=== PATIENT | male | born 1970 | race Caucasian/White ===

== ENCOUNTER 2020-06-15 15:25 | Observation (INO) ==
[2020-06-15 16:02] LABS: Basophils # 0.1 10*3/uL (0.0-0.2); Basophils % 1.1 % (0.0-0.8); Eosinophils # 0.2 10*3/uL (0.0-0.87); Eosinophils % 4.8 % (0.00-10.9); Hematocrit 47.7 VOL% (42.0-52.0); Hemoglobin 16.6 GM/DL (14.0-18.0); Immature Granulocytes % 0.4 %; Immature Granulocytes Absolute 0.02 #; Lymphocytes # 1.4 10*3/uL (1.4-4.0); Lymphocytes % 30.5 % (21.2-54.2); Mean Corpuscular HGB Conc 34.8 GM/DL (32-36); Mean Corpuscular Volume 83.1 FL (87-102); Mean Platelet Volume 9.3 FL (9.6-12.0); Monocytes % 6.7 % (1.7-12.7); Neutrophils % 56.5 % (38.7-73.9); Platelet Count 218 T/CUMM (130-400); Red Blood Count 5.74 MC/CUMM (3.8-5.5); Red Cell Distribution Width 12.1 % (9.3-17.3); White Blood Count 4.6 T/CUMM (4-12)
[2020-06-15 16:58] LABS: Bilirubin,Total 0.9 MG/DL (0.2-1.0); Calcium 9.3 MG/DL (8.5-10.1); Osmolality,Calculated 283.8 MOS/KG (273-304); Total Protein 7.4 G/DL (6.4-8.3)
[2020-06-15] MEDS ORDERED: ASPIRIN EC 325 MG TABLET PO STA (17:35)
[2020-06-15] MEDS ORDERED: ASPIRIN 325 MG TABLET ONE (17:37)
[2020-06-15] MEDS ORDERED: ZALEPLON 5 MG CAPSULE PO PRN ×2 (17:43→17:50)
[2020-06-15] MEDS ORDERED: LACTULOSE 20 GM/30 ML UDCUP PO PRN (17:50)
[2020-06-15] MEDS ORDERED: ALUMINUM/MAGNES/SIMETH MAX STR 30 ML UDCUP PO PRN (17:50)
[2020-06-15] MEDS ORDERED: GLUCAGON 1 MG VIAL IM PRN (17:50)
[2020-06-15] MEDS ORDERED: SIMETHICONE CHEW 125 MG TABLET PO PRN (17:50)
[2020-06-15] MEDS ORDERED: guaiFENesin/DM ER 600-30 MG TABLET PO PRN (17:50)
[2020-06-15] MEDS ORDERED: DOCUSATE SODIUM 100 MG CAPSULE PO PRN (17:50)
[2020-06-15] MEDS ORDERED: BISACODYL 5 MG TABLET PO PRN (17:50)
[2020-06-15] MEDS ORDERED: diphenhydrAMINE CAP 25 MG CAPSULE PO PRN (17:50)
[2020-06-15] MEDS ORDERED: traZODone 50 MG TABLET PO PRN (17:50)
[2020-06-15] MEDS ORDERED: ONDANSETRON 4 MG/2 ML VIAL IV PRN (17:50)
[2020-06-15] MEDS ORDERED: DEXTROSE 50% 25 GM/50 ML VIAL IV PRN (17:50)
[2020-06-15] MEDS ORDERED: MECLIZINE 25 MG TABLET PO PRN (17:53)
[2020-06-15] MEDS ORDERED: MECLIZINE 25 MG TABLET ONE (18:45)
[2020-06-15] MEDS ORDERED: BUTALBITAL/ACETAMIN/CAFFEINE 50-325-40 MG TABLET PO ONE (20:00)
[2020-06-15] MEDS ORDERED: ENOXAPARIN 40 MG/0.4 ML SYRINGE SUBCUT SCH (21:00)
[2020-06-15 23:11] LABS: Bilirubin,Urine Negative (Negative); Blood, Urine Negative (Negative); Glucose,Urine (UA) >=500 mg/dL (Negative); Ketones,Urine 5 mg/dL (Negative); Mucus,Urine Occasional /LPF (Occasional); Nitrite,Urine Negative (Negative); Protein,Urine Negative; RBC,Urine 1 /HPF (0-4); Squamous Epithelial Cell,Urine Occasional /HPF (0-10); Urine Appearance CLEAR (Clear); Urine Color Yellow (Yellow); Urine Specific Gravity 1.032 (1.001-1.035); Urine Urobilinogen < 2.0 EU/DL (0.2-1.0); WBC,Urine 1 /HPF (0-6)
[2020-06-16 02:07] LABS: Cannabinoid Screen,Urine Negative (Negative)
[2020-06-16 02:08] LABS: Barbiturates Screen,Urine Negative (Negative); Benzodiazepines Screen,Urine Negative (Negative); Phencyclidine Screen,Urine Negative (Negative)
[2020-06-16 06:37] LABS: Basophils # 0.1 10*3/uL (0.0-0.2); Eosinophils # 0.2 10*3/uL (0.0-0.87); Eosinophils % 3.9 % (0.00-10.9); Hematocrit 46.6 VOL% (42.0-52.0); Hemoglobin 16.3 GM/DL (14.0-18.0); Immature Granulocytes % 0.3 %; Immature Granulocytes Absolute 0.02 #; Lymphocytes # 1.7 10*3/uL (1.4-4.0); Lymphocytes % 29.1 % (21.2-54.2); Mean Corpuscular Volume 82.9 FL (87-102); Mean Platelet Volume 9.4 FL (9.6-12.0); Monocytes % 6.4 % (1.7-12.7); Neutrophils % 59.3 % (38.7-73.9); Platelet Count 203 T/CUMM (130-400); Red Blood Count 5.62 MC/CUMM (3.8-5.5); Red Cell Distribution Width 12.2 % (9.3-17.3); White Blood Count 5.9 T/CUMM (4-12)
[2020-06-16 07:01] LABS: Risk Ratio 7.18; Thyroid Stimulating Hormone 0.852 uIU/ml (0.358-3.74)
[2020-06-16 07:05] LABS: Albumin 3.7 G/DL (3.4-5.0); Bilirubin,Total 0.9 MG/DL (0.2-1.0); Calcium 8.9 MG/DL (8.5-10.1); Osmolality,Calculated 275.2 MOS/KG (273-304)
[2020-06-16] MEDS ORDERED: lisinopriL 10 MG TABLET PO SCH (09:00)
[2020-06-16] MEDS ORDERED: hydroCHLOROthiazide 25 MG TABLET PO SCH (09:00)
[2020-06-16] MEDS ORDERED: ASPIRIN EC 81 MG TABLET PO SCH (09:00)
[2020-06-16] MEDS ORDERED: PANTOPRAZOLE 40 MG TABLET PO SCH ×2 (09:00)
[2020-06-16] MEDS ORDERED: METOPROLOL TARTRATE 25 MG TABLET PO SCH (09:00)
[2020-06-16] MEDS ORDERED: CETIRIZINE 10 MG TABLET PO SCH (09:00)
[2020-06-16] MEDS ORDERED: OMEGA 3 ACID ETHYL ESTERS 1 GM CAPSULE PO SCH (09:00)
[2020-06-16 11:46] VITALS: BP 160/90
[2020-06-16] MEDS ORDERED: ATORVASTATIN 40 MG TABLET PO SCH (21:00)
== END 2020-06-16 14:15 | disposition hospice, home (50) ==
LOC: N.ED 15:25 → N.EDINP 15:25 → N.3E 19:11
PROVIDERS: ADMIT Internal Medicine; ATTEND Internal Medicine